=== PATIENT | male | born 1975 | race Caucasian/White ===

== ENCOUNTER 2018-02-12 16:35 | Emergency (ER) | payer OTHER ==
[~2018-02-12] VITALS: Ht 177.8 cm; Wt 79.0 kg
[2018-02-12 17:27] LABS: BASOPHILS # (AUTO) 0.02 x10^3/uL (0-0.1); BASOPHILS % (AUTO) 0 % (0-1); EOSINOPHILS # (AUTO) 0.06 x10^3/uL (0-0.4); EOSINOPHILS % (AUTO) 1 % (1-7); LYMPHOCYTES # (AUTO) 1.57 x10^3/uL (1-3.4); LYMPHOCYTES % (AUTO) 31 % (22-44); MD NO; MEAN CORPUSCULAR HEMOGLOBIN 31.7 pg (27.5-34.5); MEAN CORPUSCULAR HGB CONC 34.4 g/dL (33.2-36.2); MEAN CORPUSCULAR VOLUME 92.1 fL (81-97); MONOCYTES # (AUTO) 0.41 x10^3/uL (0.2-0.8); MONOCYTES % (AUTO) 8 % (2-9); NEUTROPHILS # (AUTO) 2.96 x10^3/uL (1.8-6.8); NEUTROPHILS % (AUTO) 59 % (42-75); PLATELET COUNT 162 x10^3/uL (130-400); RED BLOOD COUNT 4.69 x10^6/uL (4.38-5.82); RED CELL DISTRIBUTION WIDTH 13.8 % (9.4-14.8)
[2018-02-12 17:34] LABS: ANION GAP 5 mmol/L (5-15); CALCIUM 8.6 mg/dL (8.5-10.1); CHLORIDE 108 mmol/L (98-107)
[2018-02-12 17:35] LABS: ALBUMIN 3.4 g/dL (3.4-5.0)
[2018-02-12 18:42] VITALS: BP 98/59
== END 2018-02-12 20:34 | disposition home or self-care (01) ==
LOC: ED 20:10
DX: R53.1 Weakness (principal); R42 Dizziness and giddiness; E16.2 Hypoglycemia, unspecified; F17.200 Nicotine dependence, unspecified, uncomplicated; Z21 Asymptomatic human immunodeficiency virus [HIV] infection status
CPT/HCPCS: 36415; 80048; 82040; 82962; 85025; 93005; 99285

== ENCOUNTER 2019-12-17 09:44 | Emergency (ER) | payer SELFPAY ==
[~2019-12-17] VITALS: Ht 167.6 cm; Wt 79.0 kg
[2019-12-17] MEDS ORDERED: MORPHINE SULFATE 4 MG/ML, 1ML ONE ×2 (09:50→10:07)
--- NOTE | 2019-12-17 09:59 | NUR ---
BIB BY [facility] FOR KNOWN LEFT INGUINAL HERNIA 1ST DIAGNOSED 1 MONTH AGO, PATIENT AWOKE TO PALPABLE MASS TO LEFT GROIN. DENIES DIFFICULTY WITH VOIDING/BOWEL MEDICATED WITH FENTANYL/ZOFRAN EN ROUTE
[2019-12-17] MEDS ORDERED: ONDANSETRON 2MG/ML, 2ML IVPush ONE (10:00)
[2019-12-17] MEDS: MORPHINE SULFATE 4 MG/ML, 1ML IVPush PRN ×2 (10:05→10:25)
--- NOTE | 2019-12-17 10:12 | NUR ---
WITH ASSESSMENT PATIENT WITH REDUCABLE LARGE LEFT INGUINAL HERNIA. PROVIDER TO BEDSIDE. PLAN TO OBTAIN US/LAB THEN REFER TO SURGERY. PATIENT REPORTS HE HAS SEEN A SURGEON WHO WANT TO REPAIR DEFECT BUT WOULD LIKE PAYMENT UP FRONT (PATIENT MAKE TOO MUCH MONEY DISQUALIFYING HIM FROM MEDICAID (BUT EMPLOYER DOESN'T OFFER HEALTH INSURANCE)
[2019-12-17] MEDS ORDERED: HYDROmorphone 1 MG/ML, 1ML INJ ONE (10:23)
--- NOTE | 2019-12-17 10:25 | NUR ---
WITH REASSESMENT HERNIA NOW PROLAPSED. PROVIDER TO BEDSIDE TO ASSES. PATIENT THEN RE-MEDICATED PER EMAR FOR RETURN IN PAIN TO 02/13. TO XRAY AT 1025 (R/O SBO LAST BM 4 DAYS AGO)
[2019-12-17] MEDS ORDERED: HYDROmorphone 2 MG/ML, 1ML IVPush PRN (10:30)
[2019-12-17] MEDS ORDERED: LORazepam 2 MG/ML, 1ML IVPush ONE (11:00)
[2019-12-17] MEDS ORDERED: LORazepam 2 MG/ML, 1ML ONE (11:03)
--- NOTE | 2019-12-17 11:05 | NUR ---
CONTINUES TO HAVE IMMENSE PAIN 02/13-MEDICATED WITH ATIVAN PATIENT REMINDED OF NEED FOR UA-PATIENT CURRENTLY ATTEMPTING TO VOID
[2019-12-17 11:08] LABS: BASOPHILS # (AUTO) 0.03 x10^3/uL (0-0.1); BASOPHILS % (AUTO) 1 % (0-1); EOSINOPHILS # (AUTO) 0.05 x10^3/uL (0-0.4); EOSINOPHILS % (AUTO) 1 % (1-7); LYMPHOCYTES # (AUTO) 2.24 x10^3/uL (1-3.4); LYMPHOCYTES % (AUTO) 33 % (22-44); MD NO; MEAN CORPUSCULAR HEMOGLOBIN 31.4 pg (27.5-34.5); MEAN CORPUSCULAR HGB CONC 32.9 g/dL (33.2-36.2); MEAN CORPUSCULAR VOLUME 95.4 fL (81-97); MEAN PLATELET VOLUME 6.9 fL (7.4-10.4); MONOCYTES # (AUTO) 0.44 x10^3/uL (0.2-0.8); MONOCYTES % (AUTO) 7 % (2-9); NEUTROPHILS # (AUTO) 3.96 x10^3/uL (1.8-6.8); NEUTROPHILS % (AUTO) 59 % (42-75); PLATELET COUNT 164 x10^3/uL (130-400); RED BLOOD COUNT 4.67 x10^6/uL (4.38-5.82); RED CELL DISTRIBUTION WIDTH 13.7 % (9.4-14.8)
[2019-12-17 11:12] LABS: ALANINE AMINOTRANSFERASE 23 U/L (12-78); ALBUMIN 3.8 g/dL (3.4-5.0); ANION GAP 3 mmol/L (5-15); CALCIUM 8.6 mg/dL (8.5-10.1); CHLORIDE 112 mmol/L (98-107); CREATININE 0.85 mg/dL (0.7-1.3)
[2019-12-17 11:14] LABS: ALKALINE PHOSPHATASE 43 U/L (45-117); BILIRUBIN,TOTAL 0.8 mg/dL (0.2-1.0); TOTAL PROTEIN 6.7 g/dL (6.4-8.2)
[2019-12-17] MEDS ORDERED: OMNIPAQUE 350 MG/ML, 100ML BOTTLE ONE (11:47)
--- NOTE | 2019-12-17 11:57 | NUR ---
report to amarjit
--- NOTE | 2019-12-17 12:00 | NUR ---
PT VOIDED IN URINAL WITHOUT DIFFICULTY. RV'WD POC WITH HIM, HE VERBALIZES UNDERSTANDING.
[2019-12-17 12:16] VITALS: BP 125/86
--- NOTE | 2019-12-17 12:17 | NUR ---
PT SLEEPING, VSS. ERP AT BS FOR RECHECK.
[2019-12-17 12:35] LABS: MICROSCOPIC NOT IND
--- NOTE | 2019-12-17 12:35 | NUR ---
IV REMOVED, PT GOT DRESSED AND SAID, "WELL THANKS FOR NOTHING." AMBULATED OUT OF ED BEFORE RECEIVING DISCHARGE PAPERS AND RX. Addendum: 12/17/19 at 1249 by CHRISON PT LEFT BEFORE RECEIVING HERNIA BELT FROM [facility]TR[facility] SUPPLY.
[2019-12-17 13:04] LABS: AMPHETAMINE SCREEN, URINE Positive (Negative); BARBITURATE SCREEN, URINE Negative (Negative); BENZODIAZEPINE SCREEN, URINE Negative (Negative); CANNABINOID SCREEN, URINE Positive (Negative); COCAINE SCREEN, URINE Negative (Negative); METHADONE SCREEN, URINE Negative (Negative); OPIATE SCREEN, URINE Positive (Negative)
== END 2019-12-17 12:47 | disposition home or self-care (01) ==
LOC: ED 11:25
DX: K40.90 Unilateral inguinal hernia, without obstruction or gangrene, not specified as recurrent (principal); R10.9 Unspecified abdominal pain
CPT/HCPCS: 36415; 74021; 74177; 80053; 80307; 81003; 85025; 96374; 96375; 99285; J1170; J2060; J2270; Q9967